=== PATIENT | female | born 1975 | race African-American/Black ===

== ENCOUNTER 2017-07-17 16:41 | Emergency (ER) | payer MEDICAID ==
[~2017-07-17] VITALS: Ht 172.7 cm; Wt 108.0 kg
[~2017-07-17 16:41] MED LIST: HYDR12.518; LISI-186
[2017-07-17] MEDS ORDERED: ONDANSETRON HCL 4MG/2ML VIAL IV STA (17:09)
[2017-07-17] MEDS ORDERED: MORPHINE SULFATE 4 MG/ML CPJ (NOT FOR IM USE) IV STA (17:09)
[2017-07-17 17:30] LABS: BASOPHILS % 0.6 % (0.0-2.0); EOSINOPHILS % 2.2 % (0.0-5.0); HEMOGLOBIN. 9.3 g/dL (12.0-16.0); LYMPHOCYTES % 43.3 % (20.0-50.0); MEAN PLATELET VOLUME 6.3 fl (7.4-10.4); MONOCYTES % 6.3 % (2.0-8.0); NEUTROPHILS % 47.6 % (40.0-76.0); PLATELET 510 x1000/uL (130-400); RED BLOOD CELL COUNT 4.63 mill/uL (4.2-5.4); RED CELL DISTRIBUTION WIDTH 19.6 % (11.6-14.6)
[2017-07-17 17:35] LABS: CHLORIDE 105 mEq/L (98-107)
[2017-07-17 17:36] LABS: HCG SCREEN NEGATIVE; PROTHROMBIN TIME 10.8 sec (9.4-11.6)
[2017-07-17 17:44] LABS: CARBON DIOXIDE 26 mEq/L (21-32)
[2017-07-17 17:45] LABS: TROPONIN I < 0.02 ng/mL (0.00-0.04)
[2017-07-17 17:47] LABS: PLATELET ESTIMATE INCREASED
[2017-07-17 21:28] VITALS: BP 122/80
== END 2017-07-17 21:57 | disposition home or self-care (01) ==
LOC: ER 16:51
DX: R07.2 Precordial pain (principal); R06.02 Shortness of breath; I10 Essential (primary) hypertension; I44.0 Atrioventricular block, first degree; Z98.84 Bariatric surgery status; Z98.51 Tubal ligation status; Z98.890 Other specified postprocedural states; Z88.2 Allergy status to sulfonamides; Z88.8 Allergy status to other drugs, medicaments and biological substances
CPT/HCPCS: 36415; 71010; 80053; 83880; 84484; 84703; 85025; 85610; 93005; 96374; 96375; 99285; J2270; J2405; Z7610